=== PATIENT | female | born 1980 | race Two or more races ===

== ENCOUNTER 2022-01-10 18:00 | Emergency (ER) | payer SELFPAY ==
[~2022-01-10] VITALS: Ht 165.1 cm; Wt 72.5 kg
[2022-01-10] MEDS ORDERED: KETOROLAC TROMETH 60MG/2ML VIAL IM ONE (19:00)
[2022-01-10] MEDS ORDERED: HYDROcodone-ACET 10/325MG TAB PO ONE (19:00)
[2022-01-10] MEDS ORDERED: IBUP200C14 PO (21:02)
[2022-01-10] MEDS ORDERED: HYDR-4902 PO (21:02)
[2022-01-10 21:45] VITALS: BP 106/61
[2022-01-10 22:45] LABS: Urine Bacteria FEW /hpf (None Seen); Urine Blood TRACE /uL (Negative); Urine Specific Gravity 1.008 (1.001-1.035); Urine WBC <1 /hpf (0 - 5)
== END 2022-01-10 22:11 | disposition home or self-care (01) ==
LOC: EDBD 18:00 → ER 18:05
DX: S33.5XXA Sprain of ligaments of lumbar spine, initial encounter (principal); M54.16 Radiculopathy, lumbar region; M79.10 Myalgia, unspecified site; M47.816 Spondylosis without myelopathy or radiculopathy, lumbar region; X58.XXXA Exposure to other specified factors, initial encounter; Y93.89 Activity, other specified; Y92.89 Other specified places as the place of occurrence of the external cause; Y99.8 Other external cause status
CPT/HCPCS: 72131; 73552; 81001; 96372; 99285; J1885